=== PATIENT | female | born 1990 | race Caucasian/White ===

== ENCOUNTER 2019-06-25 15:10 | Emergency (ER) | payer OTHER, SELFPAY ==
[2019-06-25 15:18] VITALS: BP 138/84; PULSE 75; RESP 14; TEMP 36.9; O2SAT 100; BMI 26.6
--- NOTE | 2019-06-25 16:04 | ED_ITS ---
HPI - Wound/Laceration General Chief Complaint: Wound/Laceration Stated Complaint: hit her left side, wound over her ear. Time Seen by Provider: 06/25/19 15:50 Source: patient Mode of arrival: Ambulatory Limitations: no limitations History of Present Illness HPI narrative: CC: Left ear laceration HPI: The patient is a 28-year-old female who states that she works on sail boats and the sailboat she was working on had a low ceiling. She turned around and struck her left side of her head on the low ceiling and non her classes and sustained a laceration to the medial auricle of the ear. She did not lose consciousness. She did not injure her neck. She was not knocked to the ground. She has had no change in vision loss of she can double vision. She has had no nausea vomiting. Her tetanus and immunizations are up-to-date. Related Data Home Medications Medication Instructions Recorded Confirmed multivitamin [Multiple Vitamins] 1 tab PO QDAY #0 02/22/17 11/25/18 Previous Rx's Medication Instructions Recorded ketoconazole 2 % TOPICAL BID #75 gm 02/22/17 methylphenidate HCl [Concerta] 18 mg PO QAM #30 tab 02/22/17 methylphenidate HCl [Ritalin] 10 mg PO DIRECTED #45 tab 02/22/17 Allergies Allergy/AdvReac Type Severity Reaction Status Date / Time latex Allergy Severe HIVES, Verified 06/25/19 15:24 SWELLING, BREATHING PROBLEMS Sulfa (Sulfonamide Allergy Severe SWELLING Verified 06/25/19 15:24 Antibiotics) Review of Systems Review of Systems Narrative: Her review of systems were all negative except for those mentioned in the history of present illness. Patient History Surgical History History of third molar tooth extraction Status post tonsillectomy and adenoidectomy Family History Father Age: 52 ADHD (attention deficit hyperactivity disorder) Heart disease Alcoholic Grandmother Age: 80 Heart disease Hypertension Social History Smoking Status: Never smoker Smoking Status: Never smoker alcohol intake frequency: holidays/special occasions only Substance Use Type: marijuana Exam Narrative Exam Narrative: PHYSICAL EXAM: CONSTITUTIONAL: Awake, Alert, Oriented, Coherent, Cooperative in NAD. Does not appear toxic or ill. HEAD: AT/NC EENT: PERRL, FROM of eyes, no discharge, no nystagmus EARS:No drainage from the ears, Tympanic membranes intact bilaterally, clear EAC. The anterior medial superior auricle of the ear has an oblique 0.5-0.75 laceration. Bleeding is controlled. NOSE:No epistaxis or nasal drainage NECK: Supple, no obvious JVD, Trachea is midline without stridor, no palpable LN. SPINE: Palpationof the cervical, Thoracic, Lumbar or Sacral spine reveals no gross deformity or tenderness. No CVA tenderness. LUNGS: Clear, symmetrical breath sounds without respiratory distress. HEART: Normal heart tones, regular rhythm and rate without murmur. ABDOMEN: Soft, non-tender, normal bowel sounds without guarding, rebound, rigidity or palpable mass. NEURO: Awake, alert, oriented, conversive, cranial nerves II-XII are symmetrical , moves all 4 extremities and is ambulatory. Initial Vital Signs Initial Vital Signs: Vital Signs Temperature 98.4 F 06/25/19 15:18 Pulse Rate 75 06/25/19 15:18 Respiratory Rate 14 06/25/19 15:18 Blood Pressure 138/84 06/25/19 15:18 Pulse Oximetry 100 06/25/19 15:18 Procedures Laceration Repair Laceration 1: Site: other Size (cm): 0.75 Description: linear Depth: simple, single layer Skin layer closed with: dermabond Course Course Course Narrative: Laceration repaired with dermabond. Vital Signs Vital signs: Vital Signs - 8 hr 06/25/19 15:18 Temperature 98.4 F Pulse Rate 75 Respiratory Rate 14 Blood Pressure 138/84 Pulse Oximetry 100 Discharge Plan Departure Patient Disposition: Home Clinical Impression: Laceration of ear, left, simple Qualifiers: Encounter type: initial encounter Qualified Code(s): S01.312A - Laceration without foreign body of left ear, initial encounter Discharge Date/Time: 06/25/19 16:25 Instructions: DI for Laceration Repair, DI for Minor Laceration Activity Restrictions/Additional Instructions: 1. 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 2. Return to the emergency department if your your becomes red swollen with signs of infection. 3. For any pain and discomfort take 3 , 200 mg ibuprofen tablets every 6 hours a s needed. 4.Wound check in 2 days Prescriptions: No Action multivitamin [Multiple Vitamins] 1 EACH tablet 1 tab PO QDAY Qty: 0 RF: 0 methylphenidate HCl [Ritalin] 10 MG tablet 10 mg PO DIRECTED Qty: 45 RF: 0 methylphenidate HCl [Concerta] 18 MG tablet extended release 24hr 18 mg PO QAM Qty: 30 RF: 0 ketoconazole 2 % cream 2 % Topical BID Qty: 75 RF: 3
== END 2019-06-25 16:25 | disposition home or self-care (01) ==
PROVIDERS: Emergency Provider Emergency Medicine
DX: S01.312A Laceration without foreign body of left ear, initial encounter (principal); W22.8XXA Striking against or struck by other objects, initial encounter; Y99.0 Civilian activity done for income or pay
CPT/HCPCS: 99282